=== PATIENT | female | born 1945 | race Caucasian/White ===

== ENCOUNTER 2021-03-26 10:07 | Emergency (ER) | payer MEDICARE, SELFPAY ==
[~2021-03-26] VITALS: Ht 165.1 cm; Wt 127.0 kg
[2021-03-26 10:10] VITALS: BP_SYST 130
--- NOTE | 2021-03-26 10:29 | NUR ---
Patient to ER bed 8 to gown for evaluation. Side rails up. Report given to Glenis.
--- NOTE | 2021-03-26 10:32 | NUR ---
BIBA re mechanical fall. Reporting back of head and left shoulder pain. Awaiting MD evaluation.
--- NOTE | 2021-03-26 11:15 | NUR ---
Dr Taylor to bedside to assess patient
--- NOTE | 2021-03-26 11:25 | NUR ---
Patient transported to [facility] via [facility]
[2021-03-26 12:09] LABS: BASOPHILS % (AUTO) 0.4 % (0.0-2.0); EOSINOPHILS # (AUTO) 0.2 K/uL (0.0-0.4); EOSINOPHILS % (AUTO) 2.3 % (0.0-4.0); HEMATOCRIT 34.2 % (36-48); HEMOGLOBIN 10.9 g/dL (12.0-16.0); LYMPHOCYTES # (AUTO) 0.8 K/uL (1.0-5.5); LYMPHOCYTES % (AUTO) 9.5 % (20.5-51.5); MEAN CORPUSCULAR HEMOGLOBIN 29 pg (27-31); MEAN CORPUSCULAR HGB CONC 32 % (32-36); MEAN CORPUSCULAR VOLUME 92 fL (79.0-98.0); MONOCYTES # (AUTO) 0.7 K/uL (0.0-1.0); MONOCYTES % (AUTO) 8.3 % (1.7-9.3); NEUTROPHILS # (AUTO) 6.8 K/uL (1.8-7.7); NEUTROPHILS % (AUTO) 79.5 % (40.0-70.0); PLATELET COUNT (AUTO) 140 K/uL (130-430); RED BLOOD CELL COUNT(AUTO) 3.74 MIL/uL (4.2-6.2); RED CELL DISTRIBUTION WIDTH 15.3 % (9.0-15.0); WHITE BLOOD COUNT (AUTO) 8.5 K/uL (4.8-10.8)
[2021-03-26 12:14] LABS: ANION GAP -2 (5-15); CALCIUM 8.2 mg/dL (8.4-11.0); CHLORIDE 101 mmol/L (98-107); CREATININE 1.07 mg/dL (0.55-1.30); GLUCOSE 171 mg/dL (70-99); POTASSIUM 4.6 mmol/L (3.5-5.1); SODIUM SERUM 137 mmol/L (136-145); UREA NITROGEN, BLOOD 20 mg/dL (8-21)
--- NOTE | 2021-03-26 12:29 | NUR ---
Patient transported to CT scan via [facility]
--- NOTE | 2021-03-26 12:29 | NUR ---
Dr Taylor informed [place] and is incontinent so we are currently unable to obtain a UA.
--- NOTE | 2021-03-26 12:38 | NUR ---
Per Jennifer (radiology dept), patient may have intracranial bleed. Patient returned from CT at this time. Dr Taylor informed.
--- NOTE | 2021-03-26 12:40 | NUR ---
Patient easily arousable to voice. Alert and oriented once awake. Only reporting feeling cold at the moment but is on no acute distress.
[2021-03-26] MEDS ORDERED: levETIRAcetam 1,000 MG IV BAG 100 ML IV ONE (13:00)
--- NOTE | 2021-03-26 13:12 | NUR ---
Put on portable monitor. VSS.
--- NOTE | 2021-03-26 13:13 | NUR ---
COVID swab collected at bedside and sent to lab
--- NOTE | 2021-03-26 13:37 | NUR ---
# 20 gauge angiocath placed to L AC. Use of asceptic technique. Opsite placed over site. Blood return noted. Blood for lab drawn from site. Flushed with 10 cc of normal saline. No evidence of infiltration noted. Patient tolerated well.
--- NOTE | 2021-03-26 13:39 | NUR ---
Patient swabbed for covid. Sample brought to lab.
[2021-03-26 14:12] LABS: PROTHROMBIN TIME 10.7 SECS (9.5-12.5)
--- NOTE | 2021-03-26 14:16 | NUR ---
TRANSFER INFO Nydia Garces Dr.fer [phone] ALS ETA 1515 SPOKE TO MAGGIE
--- NOTE | 2021-03-26 15:29 | NUR ---
Patient stated "I feel like I'm gonna pass out." Blood sugar 108.
--- NOTE | 2021-03-26 15:41 | NUR ---
Patient being prepared for transport to [place]
--- NOTE | 2021-03-26 15:42 | NUR ---
Patient to be transferred to [facility]. Is being transferred due to higher level of care. Receiving facility has accepting physician and available space. ER physician has signed transfer form. Patient or responsible democrat has agreed to transfer and signed form. Patient belongings inventoried and will be sent with patient. Copy of nursing notes, lab reports, EKG, Physicians Orders and X-rays to be sent with patient. Report called to RN at receiving facility. Receiving physician is Dr Mahan. [facility] has been called for transfer. ETA is 1515.
[2021-03-26 16:39] VITALS: BP_SYST 176
== END 2021-03-26 16:39 | disposition short-term general hospital (02) ==
LOC: SED 10:07
DX: S06.4X1A Epidural hemorrhage with loss of consciousness of 30 minutes or less, initial encounter (principal); M25.512 Pain in left shoulder; Z20.822 Contact with and (suspected) exposure to COVID-19; Z79.899 Other long term (current) drug therapy; W18.39XA Other fall on same level, initial encounter; Y93.89 Activity, other specified; Y92.89 Other specified places as the place of occurrence of the external cause; Y99.8 Other external cause status
CPT/HCPCS: 36415; 70450; 71045; 72125; 73030; 76376; 80048; 82962; 84484; 85025; 85610; 85730; 86886; 86900; 86901; 87426; 93005; 96365; 99291; J1953; 99285